=== PATIENT | female | born 1970 | race Caucasian/White ===

== ENCOUNTER → 2017-05-17 | Outpatient (CLI) | payer BC, OTHER ==
[~2017-05-17] MED LIST: DARVOCET-N 1001 EACH PO; KEFLEX500 MG PO; KEPPRA 500 MG500 MG PO; KEPPRA250 MG PO; ONE DAILY1 EAC2 PO; ULTRAM 50MG TAB50 MG PO; VALACYCLOVIR500 MG PO; VALIUM2 MG PO; VALIUM5 MG PO
== END ==
LOC: MRI 07:02
DX: C71.9 Malignant neoplasm of brain, unspecified (principal)